=== PATIENT | male | born 1995 | race Caucasian/White ===

== ENCOUNTER 2018-07-09 11:25 | Day surgery (SDC) | payer OTHER ==
[~2018-07-09 11:25] MED LIST: DEXAMETHASONE SOD PHOSPHATE 10 MG/ML 1 ML VIAL IV ONE; LACTATED RINGERS 1,000 ML IV SCH; LIDOCAINE 1% 20 ML VIAL (10MG/ML) FOR IV START INTRADERMA PRN; MIDAZOLAM 2 MG/2 ML VIAL IV PRN; ceFAZolin IN SWFI 2 GM/20 ML SYRINGE IVP ONE; fentaNYL (PF) 50 MCG/ML 2 ML AMP IV PRN
[2018-07-09 12:02] VITALS: BMI 36.4
[2018-07-09 12:04] VITALS: RESP 16
[2018-07-09] MEDS ORDERED: FAMOTIDINE 20 MG/2 ML VIAL IVP ONE (14:05)
[2018-07-09] MEDS ORDERED: HYDROmorphone (PF) 1 MG/ML ONE (14:12)
[2018-07-09] MEDS ORDERED: SUCCINYLCHOLINE CHLORIDE 100 MG/5 ML SYR IV ONE (14:12)
[2018-07-09] MEDS ORDERED: PROPOFOL 10 MG/ML 20 ML VIAL IV ONE (14:12)
[2018-07-09] MEDS ORDERED: fentaNYL (PF) 50 MCG/ML 2 ML AMP ONE (14:12)
[2018-07-09] MEDS ORDERED: LIDOCAINE 1% INJ 10MG/ML (20 ML MDV) ONE (14:12)
[2018-07-09] MEDS ORDERED: MIDAZOLAM 2 MG/2 ML VIAL ONE (14:12)
[2018-07-09] MEDS ORDERED: LIDOCAINE 1%-EPI 1:100,000 20 ML VIAL SQ ONE (14:14)
[2018-07-09] MEDS ORDERED: LACTATED RINGERS 1,000 ML IV ONE (15:20)
[2018-07-09] MEDS ORDERED: ONDANSETRON 4 MG/2 ML VIAL IVP ONE (16:35)
[2018-07-09 16:53] VITALS: TEMP 97.3
--- NOTE | 2018-07-09 17:38 | P.OP ---
Date of Procedure: 07/09/18 Preoperative Diagnosis: Displaced, intra-articular right fifth metacarpal base fracture Postoperative Diagnosis: Displaced, intra-articular right fifth metacarpal base fracture Procedure(s) Performed: Open reduction and internal fixation of displaced, intra-articular right fifth metacarpal base fracture Implants: Three 0.054 K-wires Anesthesia: BRANDI, local Surgeon: Kervin Hughes Estimated Blood Loss (ml): 5 Condition: stable Disposition: PACU Indications for Procedure: The patient is a 23 year-old male who sustained an injury to right hand, resulting in a displaced, intra-articular fracture of his right fifth metacarpal base. Treatment options were discussed in the office. Due to the intra- articular nature of the fracture with step-off and subluxation of the CMC joint, surgical treatment was recommended. Risks and benefits were discussed in the office and reviewed in preop. Questions were invited and answered. The patient expressed understanding and wished to proceed with surgery. Consents forms were signed. The operative site was confirmed and marked. Description of Procedure: The patient was positioned supine with the operative limb on an arm board. All bony prominences were well padded. Anesthesia was administered uneventfully. Prophylactic IV antibiotics were administered. Using aseptic technique, an ulnar nerve block was administered with 10cc of lidocaine with epinephrine. A tourniquet was placed on the operative arm which was then prepped and draped in standard, sterile fashion. A timeout was performed which confirmed the patient, the operative side, the site and the procedure to be performed. All team mem bers expressed agreement. Intraoperative fluoroscopy was used to evaluate the fracture. The radial aspect of the fifth metacarpal base was impacted with widening of the fracture site at the articular surface. The ulnar aspect of the metacarpal base was subluxed ulnarly on the hamate. Combination of axial traction and manual reduction was used to realign the fracture. This was confirmed on imaging. A 0.054 K wire was selected and introduced percutaneously into the ulnar fracture fragment to be used as a joystick. Manual attempts to improve the articular incongruity were unsuccessful and the decision was made to open reduce the fracture. The K wire was removed. The limb was exsanguinated with an Esmarch and the tourniquet was inflated. A small longitudinal incision was made over the CMC joint between the fourth and fifth metacarpal bases. Blunt spreading dissection proceeded down to the joint capsule. A small capsulotomy was made to allow insertion of a pointed reduction clamp. A separate mini-open incision was made ulnarly over the fifth metacarpal base. Subcutaneous tissues were spread down to the bone, taking care to protect adjacent tendinous and neurovascular structures. The pointed reduction clamp was inserted through both small incisions and used to reduce the fracture. Alignment was confirmed on imaging. The 0.054 K wire was inserted and driven transversely across the fifth metacarpal base and into the far side of the fourth metacarpal base. A second K wire was inserted just distal to this in the same orientation. A third K wire was introduced percutaneously and advanced into the distal portion of the metaphysis and driven retrograde across the CMC joint and into the hamate. Final x-rays were obtained. Good reduction of the fracture was achieved with a small residual intra-articular step-off. The fifth metacarpal base showed no subluxation on orthogonal images. The fracture was then stressed under live fluoroscopy: There was no visible motion at the fracture site or of the fixation construct. No motion or subluxation was seen at the CMC joints. The tourniquet was released and good hemostasis was obtained with pressure. The wounds were thoroughly irrigated with normal saline. The K wires were cut short and covered with Jurgan balls. The incisions were closed with interrupted 4-0 nylon sutures. Sterile dressings were applied followed by a short plaster ulnar gutter splint with the MCP joints free. All sponge, needle and instrument counts were correct at the end of the case. The patient tolerated the procedure well and was taken to recovery in stable condition.
[2018-07-09 18:43] VITALS: BP 130/87; PULSE 56
--- NOTE | 2018-07-10 16:30 | FL ---
Fluoroscopy INDICATION: Pain FINDINGS: Fluoroscopy time: 4 minutes 16 seconds. Images obtained: 3. IMPRESSIONS: 1. Documentation of fluoroscopy.
== END 2018-07-09 18:55 | disposition home or self-care (01) ==
LOC: OR 11:25
PROVIDERS: ATTEND Orthopaedic Surgery
DX: S62.396A Other fracture of fifth metacarpal bone, right hand, initial encounter for closed fracture (principal); X58.XXXA Exposure to other specified factors, initial encounter; J45.909 Unspecified asthma, uncomplicated; K21.9 Gastro-esophageal reflux disease without esophagitis; Z87.891 Personal history of nicotine dependence; Z79.1 Long term (current) use of non-steroidal anti-inflammatories (NSAID)
CPT/HCPCS: 73120; 26615; C1713; J2250; J1100; J2405; J2001; J3010; J1170; J0330; J2704; J0690

== ENCOUNTER 2022-01-17 03:53 | Emergency (ER) | payer OTHER ==
[2022-01-17] MEDS ORDERED: AMPICILLIN-SULBACTAM 3 GM VIAL ONE (05:00)
[2022-01-17] MEDS ORDERED: methylPREDNISolone SOD SUCCI 125 MG/2 ML VIAL ONE (05:00)
[2022-01-17] MEDS ORDERED: SODIUM CHLORIDE 0.9% 100 ML BAG ONE (05:00)
[2022-01-17] MEDS ORDERED: diphenhydrAMINE 50 MG/ML 1 ML VIAL ONE (05:00)
[2022-01-17] MEDS ORDERED: ONDANSETRON 4 MG/2 ML VIAL ONE (05:00)
[2022-01-17] MEDS ORDERED: FAMOTIDINE 20 MG/2 ML VIAL ONE (05:00)
[2022-01-17] MEDS ORDERED: KETOROLAC 15 MG/ML 1 ML VIAL ONE (05:00)
[2022-01-17 06:46] LABS: ALT 59 U/L (4-49); AST 53 U/L (17-59); African American GFR (CKD) >90 (>60 ml/min/1.73 sqM); Albumin 4.3 g/dL (3.5-5.0); Alkaline Phosphatase 48 U/L (38-126); Anion Gap 10 mmol/L; Blood Urea Nitrogen 16 mg/dL (9-20); Calcium 9.1 mg/dL (8.4-10.2); Carbon Dioxide 21 mmol/L (22-30); Chloride 106 mmol/L (98-107); Glucose 109 mg/dL (74-99); Non-African American GFR(CKD) >90 (>60 ml/min/1.73 sqM); Sodium 137 mmol/L (137-145); Total Bilirubin 0.8 mg/dL (0.2-1.3)
[2022-01-17 06:47] LABS: Potassium 4.2 mmol/L (3.5-5.1)
[2022-01-17 06:59] LABS: Basophils # (A) 0.1 k/uL (0-0.2); Basophils % (A) 1 %; Eosinophils # (A) 0.1 k/uL (0-0.7); Eosinophils % (A) 1 %; HCT 43.2 % (39.0-53.0); HGB 14.6 gm/dL (13.0-17.5); Lymphocytes % (A) 8 %; MCH 30.6 pg (25.0-35.0); MCHC 33.9 g/dL (31.0-37.0); MCV 90.5 fL (80.0-100.0); Monocytes # (A) 0.5 k/uL (0-1.0); Monocytes % (A) 5 %; Neutrophils # (A) 10.3 k/uL (1.3-7.7); Neutrophils % (A) 85 %; Platelet Count 212 k/uL (150-450); RBC 4.77 m/uL (4.30-5.90); RDW 12.6 % (11.5-15.5); WBC 12.1 k/uL (3.8-10.6)
--- NOTE | 2022-01-17 09:48 | CT ---
EXAMINATION TYPE: CT soft tissue neck w con DATE OF EXAM: 01/17/2022 COMPARISON: None HISTORY: 26-year-old male complaining of tongue and right neck swelling and pain extending into the l eft neck. Dental abscess. TECHNIQUE: Contiguous axial scanning of the soft tissues of the neck performed with IV Contrast, joaquin ent injected with 100 mL of Isovue 300. Coronal/sagittal reconstructions performed. CT DLP: 404.1 mGycm Automated exposure control for dose reduction was used. FINDINGS: The bilateral parotid, submandibular, and thyroid glands appear satisfactory. Visualized upper chest shows clear lungs. Some residual thymus is noted in the anterior mediastinum. Conventional arch vessel branching anatomy. Some prominent lymph nodes are present on both sides of the upper neck, slightly larger on the left m easuring up to 1.4 cm. These appear to be station 2B lymph nodes. Nasopharynx is clear. Mild bilateral palatine and lingual tonsillar hypertrophy. Epiglottis and prevertebral soft tissues are satisfactory. Gliotic and subglottic structures as well as the tracheal column are clear. Asymmetrically larger right submandibular space lymph node measuring 1 cm. This is mildly enlarged fo r this level. Mucous retention cysts along the floors of the maxillary sinuses measuring up to 2.0 cm on the right. Rightward nasal septal deviation. Dental caries noted involving the right mandibular first molar, coronal image 17 and axial image 62. Bones: Reversal of the normal cervical lordosis. IMPRESSION: 1. MILDLY ENLARGED 1 CM RIGHT SUBMANDIBULAR SPACE LYMPH NODE LIKELY REACTIVE. THIS CAN BE FOLLOWED CL INICALLY. 2. A LARGE DENTAL CARIES INVOLVING THE RIGHT MANDIBULAR FIRST MOLAR. 3. NO DISCRETE ODONTOGENIC ABSCESS IS IDENTIFIED. 4. MILD BILATERAL LINGUAL AND PALATINE TONSILLAR HYPERTROPHY. PRELIMINARY AFTER HOURS READING PROVIDED BY STAT [employer].
== END 2022-01-17 09:51 | disposition home or self-care (01) ==
LOC: EC 03:53
DX: K02.9 Dental caries, unspecified (principal); J45.909 Unspecified asthma, uncomplicated
CPT/HCPCS: 36415; 80053; 83605; 85025; 70491; 99283; J1200; J2930; J2405; J0295; J1885; Q9967

== ENCOUNTER 2022-09-06 08:09 | Emergency (ER) | payer OTHER ==
[2022-09-06] MEDS ORDERED: MORPHINE SULFATE 2 MG/ML SYRINGE IM STA (08:37)
[2022-09-06] MEDS ORDERED: KETOROLAC 15 MG/ML 1 ML VIAL IM STA (08:37)
[2022-09-06] MEDS ORDERED: BENZOCAINE SPRAY 1 CAN MUCOUS MEM ONE (08:37)
[2022-09-06] MEDS ORDERED: AMOXIC-POT CLAV 875-125MG 1 EACH TAB PO STA (08:38)
--- NOTE | 2022-09-06 08:54 | ED ---
ENT HPI - General Chief complaint: Dental/Oral Stated complaint: facial swelling Time Seen by Provider: 09/06/22 08:14 Source: patient, RN notes reviewed Mode of arrival: ambulatory Limitations: no limitations - History of Present Illness Initial comments: This is a 27-year-old male who presents to the emergency department for right- sided dental pain. Believes that he is developing an abscess. States that he has started to notice right-sided dental pain and swelling over the last 2 days. He called his dentist, who was unable to get him in and subsequently instructed him to go to the emergency department. States that last night he felt like the area started to drain purulent material. He has not had any fevers, but states that he has been unable to sleep due to the pain. He did have a dental abscess a couple of years ago and states that this feels the same. He had it drained at that time, which he states was very helpful. Denies any fevers, chills, sore throat, cough, dyspnea, chest pain, palpitations, abdominal pain, nausea, vomiting, diarrhea, back pain, or headaches. MD complaint: tooth pain Onset/Timin -: days(s) - Related Data Home Medications Medication Instructions Recorded Confirmed Ibuprofen [Motrin] 600 mg PO Q6HR PRN 12/11/15 07/09/18 Naproxen Sodium [Aleve] 220 mg PO DAILY PRN 12/11/15 07/09/18 Previous Rx's Medication Instructions Recorded HYDROcodone/APAP 5-325MG [Elizabeth 1 tab PO Q6HR PRN #20 tab 07/09/18 5-325] Amoxic-Pot Clav 875-125Mg 1 tab PO Q12HR 10 Days #20 tab 09/06/22 [Augmentin 875-125] Ketorolac [Toradol] 10 mg PO Q6HR PRN #12 tab 09/06/22 Allergies Allergy/AdvReac Type Severity Reaction Status Date / Time No Known Allergies Allergy Verified 09/06/22 08:12 Review of Systems ROS Statement: Those systems with pertinent positive or pertinent negative responses have been documented in the HPI. ROS Other: All systems not noted in ROS Statement are negative. Past Medical History Past Medical History: Asthma Additional Past Medical History / Comment(s): torn trachea History of Any Multi-Drug Resistant Organisms: None Reported Additional Past Surgical History / Comment(s): foot surgery Past Psychological History: No Psychological Hx Reported Smoking Status: Current every day smoker Past Alcohol Use History: None Reported Past Drug Use History: Marijuana General Exam Limitations: no limitations General appearance: alert, in no apparent distress Head exam: Present: atraumatic, normocephalic, normal inspection Eye exam: Present: other (Palpable dental abscess superior to the canines on the right upper jaw. Multiple dental carries. ) Respiratory exam: Present: normal lung sounds bilaterally. Absent: respiratory distress, wheezes, rales, rhonchi, stridor Cardiovascular Exam: Present: regular rate, normal rhythm, normal heart sounds. Absent: systolic murmur, diastolic murmur, rubs, gallop, clicks Neurological exam: Present: alert, oriented X3, CN II-XII intact Psychiatric exam: Present: normal affect, normal mood Skin exam: Present: warm, dry, intact, normal color. Absent: rash Course Vital Signs 09/06/22 09/06/22 08:09 09:24 Temperature 97.6 F 97.7 F Pulse Rate 70 72 Respiratory 20 16 Rate Blood Pressure 138/85 134/81 O2 Sat by Pulse 99 99 Oximetry Procedures - Incision & Drainage Consent Obtained: verbal consent Indication: Abscess Site: oral Size (cm): 3 Sterile Field Used?: Yes Scalpel Used: #11 I&D Drainage Obtained: Pus, Blood Medical Decision Making - Medical Decision Making This is a 27-year-old male who presents to the emergency department for dental pain. Was pt. sent in by a medical professional or institution? @ -No Did you speak to anyone other than the patient for history? @ -No Did you review nursing and triage notes? @ -Yes, and I agree, it is accurate with regards to the patient's symptoms. Were old charts reviewed? @ -No Differential Diagnosis? @ -Differential Dental Pain: Dental abscess, chipped tooth, dental carries, everett's angina, trigeminal neuralgia, this is not meant to be an all-inclusive list. EKG interpreted by me (3pts min.)? @ -Not obtained X-rays interpreted by me (1pt min.)? @ -Not obtained CT interpreted by me (1pt min.)? @ -Not obtained U/S interpreted by me (1pt. min.)? @ -Not obtained What testing was considered but not performed? (CT, X-rays, U/S, labs)? Why? @ -None What meds were considered but not given? Why? @ -None Did you discuss the management of the patient with other professionals? @ -No Did you reconcile home meds? @ -No Was smoking cessation discussed for >3mins.? @ -No Was critical care preformed (if so, how long)? @ -No Were there social determinants of health that impacted care today? How? (Homelessness, low income, unemployed, alcoholism, drug addiction, transportation, low edu. Level, literacy, decrease access to med. care, fci, rehab)? @ -No Was there de-escalation of care discussed even if they declined? (Discuss DNR or withdrawal of care, Hospice)? @ -No What co-morbidities impacted this encounter? (DM, HTN, Smoking, COPD, CAD, Can cer, CVA, Hep., AIDS, mental health diagnosis, sleep apnea, morbid obesity)? @ -None Was patient admitted / discharged? @ -Discharged. There was a palpable abscess on physical examination. Hurricane spray was used to numb the area and an 11 blade scalpel was used to lightly poke the affected area. Purulent drainage was expressed. Patient did feel notable improvement in the swelling afterwards. Prescription for Augmentin and Toradol provided with dosing instructions reviewed.Patient is instructed to take the Toradol with Tylenol if needed and avoid any other [id number] anti-inflammatories such as ibuprofen with the Toradol. He is otherwise advised to follow-up with his dentist for reevaluation. Undiagnosed new problem with uncertain prognosis? @ -None Drug Therapy requiring intensive monitoring for toxicity (Heparin, Nitro, Insulin, Cardizem)? @ -None Were any procedures done? @ -Yes, I&D of dental abscess. #11 blade scalpel was used to lightly poke the affected area, with drainage of purulent material from the abscess. Diagnosis/symptom? @ -Dental abscess Acute, or Chronic, or Acute on Chronic? @ -Acute Uncomplicated (without systemic symptoms) or Complicated (systemic symptoms)? @ -Uncomplicated Side effects of treatment? @ -None Exacerbation, Progression, or Severe Exacerbation] @ -Not applicable Poses a threat to life or bodily function? @ -No Return precautions reviewed in depth, the patient is instructed to return to the emergency department with any new, worsening, or concerning symptoms. Patient verbalized understanding. This case was discussed in detail with the attending ED physician, Dr. Leblanc. Presentation, findings, and treatment plan discussed in detail as well. Disposition Clinical Impression: Dental abscess Disposition: HOME SELF-CARE Instructions (If sedation given, give patient instructions): Dental Abscess (ED) Additional Instructions: Return to the emergency department with any new, worsening, or concerning symptoms. Take the antibiotic as prescribed for 10 days. Take either the Toradol or ibuprofen for pain relief. Do not take them together, however you may take either of these with Tylenol. Follow-up with your dentist for reevaluation. Prescriptions: Amoxic-Pot Clav 875-125Mg [Augmentin 875-125] 1 tab PO Q12HR 10 Days #20 tab Ketorolac [Toradol] 10 mg PO Q6HR PRN #12 tab PRN Reason: Pain Is patient prescribed a controlled substance at d/c from ED?: No Referrals: None,Stated [Primary Care Provider] - 1-2 days
[2022-09-06] MEDS ORDERED: IBUPROFEN 600 MG STARTER PACK 4 TAB BTL PO STA (09:13)
[2022-09-06] MEDS ORDERED: ACET/COD 300 MG/30 MG STARTER PACK 6 TAB BTL PO STA (09:13)
[2022-09-06 09:25] VITALS: BP 134/81; PULSE 72; RESP 16; TEMP 97.7
== END 2022-09-06 09:25 | disposition home or self-care (01) ==
LOC: EC 08:09
DX: K04.7 Periapical abscess without sinus (principal); J45.909 Unspecified asthma, uncomplicated; F17.200 Nicotine dependence, unspecified, uncomplicated; F12.90 Cannabis use, unspecified, uncomplicated
CPT/HCPCS: 99283; 96372 ×2; 41800; J2270; J1885

== ENCOUNTER 2022-09-25 00:30 | Emergency (ER) | payer OTHER ==
[2022-09-25 00:41] VITALS: BP 147/85; PULSE 67; RESP 18
[2022-09-25] MEDS ORDERED: KETOROLAC 15 MG/ML 1 ML VIAL IM STA (00:51)
--- NOTE | 2022-09-25 00:59 | ED ---
ENT HPI - General Chief complaint: Dental/Oral Stated complaint: Dental Pain Time Seen by Provider: 09/25/22 00:42 Source: patient, RN notes reviewed, old records reviewed Mode of arrival: ambulatory Limitations: no limitations - History of Present Illness Initial comments: Well-appearing 27-year-old male presents to the emergency room with complaints o f right upper dental pain for 2 weeks. Patient states was seen in the emergency room couple weeks ago and had an abscess drained and prescribed antibiotics which he finished. States that he is able to express purulent drainage from the site everyday. Denies any fevers. No nausea or vomiting or diarrhea. He is unable to get into a dentist and has been calling every day. Patient is a daily smoker with a history of asthma. MD complaint: tooth pain -: week(s) Location: tooth # (4) Severity scale (1-10): 9 Quality: constant Consistency: constant Improves with: none - Related Data Home Medications Medication Instructions Recorded Confirmed Ibuprofen [Motrin] 600 mg PO Q6HR PRN 12/11/15 07/09/18 Naproxen Sodium [Aleve] 220 mg PO DAILY PRN 12/11/15 07/09/18 Previous Rx's Medication Instructions Recorded HYDROcodone/APAP 5-325MG [Manquin 1 tab PO Q6HR PRN #20 tab 07/09/18 5-325] Amoxic-Pot Clav 875-125Mg 1 tab PO Q12HR 10 Days #20 tab 09/06/22 [Augmentin 875-125] Ketorolac [Toradol] 10 mg PO Q6HR PRN #12 tab 09/06/22 Allergies Allergy/AdvReac Type Severity Reaction Status Date / Time No Known Allergies Allergy Verified 09/25/22 00:39 Review of Systems ROS Statement: Those systems with pertinent positive or pertinent negative responses have been documented in the HPI. ROS Other: All systems not noted in ROS Statement are negative. Past Medical History Past Medical History: Asthma Additional Past Medical History / Comment(s): torn trachea History of Any Multi-Drug Resistant Organisms: None Reported Additional Past Surgical History / Comment(s): foot surgery Past Psychological History: No Psychological Hx Reported Smoking Status: Current every day smoker Past Alcohol Use History: None Reported Past Drug Use History: Marijuana General Exam Limitations: no limitations General appearance: alert, in no apparent distress Head exam: Present: atraumatic, normocephalic Eye exam: Present: normal appearance. Absent: scleral icterus, conjunctival injection, periorbital swelling ENT exam: Present: mucous membranes moist, other (mutlipe dental caries and missing teeth, evidence of previous i&d no evidence of abscess) Neck exam: Present: full ROM. Absent: tenderness, meningismus, lymphadenopathy Respiratory exam: Absent: respiratory distress, accessory muscle use Cardiovascular Exam: Present: regular rate GI/Abdominal exam: Present: soft. Absent: distended Neurological exam: Present: alert, oriented X3 Psychiatric exam: Present: normal affect, normal mood Skin exam: Present: warm, dry, normal color. Absent: cyanosis, diaphoretic, petechiae, pallor Course Vital Signs 09/25/22 09/25/22 00:39 01:30 Temperature 98.0 F Pulse Rate 67 Respiratory 18 Rate Blood Pressure 147/85 O2 Sat by Pulse 98 Oximetry Medical Decision Making - Medical Decision Making Was pt. sent in by a medical professional or institution (, PA, ANIMAL HEALTH TECHNICIAN, urgent care, hospital, or long term...) When possible be specific @ -No Did you speak to anyone other than the patient for history (EMS, parent, family, police, friend...)? What history was obtained from this source @ -No Did you review nursing and triage notes (agree or disagree)? Why? @ -I reviewed and agree with nursing and triage notes Were old charts reviewed (outside hosp., previous admission, EMS record, old EKG, old radiological studies, urgent care reports/EKG's, long term records)? Report findings @ -Previous ER records September 06, CT neck January 17 Differential Diagnosis (chest pain, altered mental status, abdominal pain women, abdominal pain men, vaginal bleeding, weakness, fever, dyspnea, syncope, headache, dizziness, GI bleed, back pain, seizure, CVA, palpatations, mental health, musculoskeletal)? @ -Dental abscess, dental fracture, gingivitis EKG interpreted by me (3pts min.). @ -n/a X-rays interpreted by me (1pt min.). @ -None done CT interpreted by me (1pt min.). @ -None done U/S interpreted by me (1pt. min.). @ -None done What testing was considered but not performed or refused? (CT, X-rays, U/S, labs)? Why? @ -None What meds were considered but not given or refused? Why? @ -Antibiotics were considered however there is no evidence of a dental abscess. Patient just finished antibiotics last week. No fevers. Did you discuss the management of the patient with other professionals (professionals i.e. , LAVON, ANIMAL HEALTH TECHNICIAN, lab, RT, psych nurse, social service manager, lens cleaner, teacher, protective officer, case repairer)? Give summary @ -No Was smoking cessation discussed for >3mins.? @ -Yes Was critical care preformed (if so, how long)? @ -No Were there social determinants of health that impacted care today? How? (Homelessness, low income, unemployed, alcoholism, drug addiction, transportation, low edu. Level, literacy, decrease access to med. care, halfway, rehab)? @ -No Was there de-escalation of care discussed even if they declined (Discuss DNR or withdrawal of care, Hospice)? DNR status @ -No What co-morbidities impacted this encounter? (DM, HTN, Smoking, COPD, CAD, Cancer, CVA, ARF, Chemo, Hep., AIDS, mental health diagnosis, sleep apnea, morbid obesity)? @ -Asthma Was patient admitted / discharged? Hospital course, mention meds given and route, prescriptions, significant lab abnormalities, going to OR and other pertinent info. @ -Discharged Well-appearing 27-year-old male presents to the emergency room with complaints of right upper dental pain for 2 weeks. Patient states was seen in the emergency room couple weeks ago and had an abscess drained and prescribed antibiotics which he finished. States that he is able to express purulent drainage from the site everyday. Denies any fevers. No nausea or vomiting or diarrhea. He is unable to get into a dentist and has been calling every day. Lavon tapia is a daily smoker with a history of asthma. Patient was given a shot of Toradol. I explained that without seeing a dentist, his dental pain may not improve. Encouraged to continue Tylenol and Motrin alternating. He was given information for the [employer] [facility] [employer]. Starter pack for Tylenol 3 provided. Case discussed with Dr. Blair Undiagnosed new problem with uncertain prognosis? @ -No Drug Therapy requiring intensive monitoring for toxicity (Heparin, Nitro, Insulin, Cardizem)? @ -No Were any procedures done? @ -No Diagnosis/symptom? @ -Dental pain Acute, or Chronic, or Acute on Chronic? @ -Acute on chronic Uncomplicated (without systemic symptoms) or Complicated (systemic symptoms)? @ -Uncomplicated Side effects of treatment? @ -No Exacerbation, Progression, or Severe Exacerbation? @ -No Poses a threat to life or bodily function? How? (Chest pain, [place], [place], pneumonia, PE, COPD, DKA, ARF, appy, cholecystitis, CVA, Diverticulitis, Homicidal, Suicidal, threat to staff... and all critical care pts) @ -No Disposition Clinical Impression: Toothache Disposition: HOME SELF-CARE Condition: Good Instructions (If sedation given, give patient instructions): Toothache (ED) Additional Instructions: Take Tylenol 650 mg every 4-6 hours in addition to Motrin 70 mg every 6-8 hours. Rinse with the warm salty water three times a day. [employer] [facility] [employer] [phone]. May have to pay $50 for x-rays and the rest may be covered. Is patient prescribed a controlled substance at d/c from ED?: No Referrals: None,Stated [Primary Care Provider] - 1-2 days Time of Disposition: 00:59
[2022-09-25] MEDS ORDERED: ACET/COD 300 MG/30 MG STARTER PACK 6 TAB BTL PO STA (01:03)
[2022-09-25 01:50] VITALS: TEMP 98
== END 2022-09-25 01:53 | disposition home or self-care (01) ==
LOC: EC 00:30
DX: K02.9 Dental caries, unspecified (principal); J45.909 Unspecified asthma, uncomplicated; F17.200 Nicotine dependence, unspecified, uncomplicated; F12.90 Cannabis use, unspecified, uncomplicated
CPT/HCPCS: 99283; 96372; J1885

== ENCOUNTER 2023-10-24 11:17 | Emergency (ER) | payer BC, OTHER ==
[2023-10-24 11:23] VITALS: RESP 18
--- NOTE | 2023-10-24 11:29 | ED ---
Skin/Abscess/FB HPI - General Chief complaint: Skin/Abscess/Foreign Body Stated complaint: Blister on back, weakness, headache Time Seen by Provider: 10/24/23 11:29 Source: patient, RN notes reviewed Mode of arrival: ambulatory Limitations: no limitations - History of Present Illness Initial comments: This is a 28-year-old male with no significant past medical history who presents to the emergency department chief complaint of a rash to his left upper back. States that he is also been experiencing headaches, fatigue, and chills since the rash appeared approximately 2 days ago. He states that the pain radiates in his back. Patient does have a history of chickenpox as a child. Denies fevers, nausea, vomiting, abdominal pain, shortness of breath, productive cough. No other acute complaints at this time. - Related Data Home Medications Medication Instructions Recorded Confirmed Ibuprofen [Motrin] 600 mg PO Q6HR PRN 12/11/15 07/09/18 Naproxen Sodium [Aleve] 220 mg PO DAILY PRN 12/11/15 07/09/18 Previous Rx's Medication Instructions Recorded HYDROcodone/APAP 5-325MG [[place] 1 tab PO Q6HR PRN #20 tab 07/09/18 5-325] Amoxic-Pot Clav 875-125Mg 1 tab PO Q12HR 10 Days #20 tab 09/06/22 [Augmentin 875-125] Ketorolac [Toradol] 10 mg PO Q6HR PRN #12 tab 09/06/22 Acyclovir [Zovirax] 800 mg PO QID 7 Days #28 tab 10/24/23 Ketorolac [Toradol] 10 mg PO Q8HR PRN #15 tab 10/24/23 Allergies Allergy/AdvReac Type Severity Reaction Status Date / Time No Known Allergies Allergy Verified 10/24/23 11:23 Review of Systems ROS Statement: Those systems with pertinent positive or pertinent negative responses have been documented in the HPI. ROS Other: All systems not noted in ROS Statement are negative. Past Medical History Past Medical History: Asthma Additional Past Medical History / Comment(s): torn trachea History of Any Multi-Drug Resistant Organisms: None Reported Additional Past Surgical History / Comment(s): foot surgery Past Psychological History: No Psychological Hx Reported Smoking Status: Former smoker Past Alcohol Use History: None Reported Past Drug Use History: Marijuana General Exam Limitations: no limitations General appearance: alert, in no apparent distress Head exam: Present: atraumatic, normocephalic, normal inspection Eye exam: Present: normal appearance, PERRL, EOMI. Absent: scleral icterus, conjunctival injection, periorbital swelling ENT exam: Present: normal exam, mucous membranes moist Neck exam: Present: normal inspection. Absent: tenderness, meningismus, lymphadenopathy Respiratory exam: Present: normal lung sounds bilaterally. Absent: respiratory distress, wheezes, rales, rhonchi, stridor Cardiovascular Exam: Present: regular rate, normal rhythm, normal heart sounds. Absent: systolic murmur, diastolic murmur, rubs, gallop, clicks GI/Abdominal exam: Present: soft, normal bowel sounds. Absent: distended, tenderness, guarding, rebound, rigid Extremities exam: Present: normal inspection, full ROM, normal capillary refill. Absent: tenderness, pedal edema, joint swelling, calf tenderness Back exam: Present: rash noted (left scapular vesciluar erythematous rash measuring aprox. 2 cm by 3 cm, does not cross midline) Neurological exam: Present: alert, oriented X3, CN II-XII intact Psychiatric exam: Present: normal affect, normal mood Skin exam: Present: rash (see above description) Course Vital Signs 10/24/23 11:19 Temperature 98 F Pulse Rate 80 Respiratory 18 Rate Blood Pressure 128/81 O2 Sat by Pulse 98 Oximetry Medical Decision Making - Medical Decision Making Was pt. sent in by a medical professional or institution (, PA, [employer], urgent care, hospital, or senior care...) When possible be specific @ -No Did you speak to anyone other than the patient for history (EMS, parent, family, police, friend...)? What history was obtained from this source @ -No Did you review nursing and triage notes (agree or disagree)? Why? @ -I reviewed and agree with nursing and triage notes Were old charts reviewed (outside hosp., previous admission, EMS record, old EKG, old radiological studies, urgent care reports/EKG's, senior care records)? Report findings @ -No old charts were reviewed Differential Diagnosis (chest pain, altered mental status, abdominal pain women, abdominal pain men, vaginal bleeding, weakness, fever, dyspnea, syncope, headache, dizziness, GI bleed, back pain, seizure, CVA, palpatations, mental health, musculoskeletal)? @ -shingles, dermatitis, cellulitis, contact dermatitis, list is not all inclusive. EKG interpreted by me (3pts min.). @ -None X-rays interpreted by me (1pt min.). @ -None done CT interpreted by me (1pt min.). @ -None done U/S interpreted by me (1pt. min.). @ -None done What testing was considered but not performed or refused? (CT, X-rays, U/S, labs)? Why? @ -None What meds were considered but not given or refused? Why? @ -None Did you discuss the management of the patient with other professionals (professionals i.e. , PA, [employer], lab, RT, psych nurse, social worker palliative care, maintenance millwright, teacher, aerospace engineer officer armament, egg caser)? Give summary @ -No Was smoking cessation discussed for >3mins.? @ -No Was critical care preformed (if so, how long)? @ -No Were there social determinants of health that impacted care today? How? (Homelessness, low income, unemployed, alcoholism, drug addiction, transportation, low edu. Level, literacy, decrease access to med. care, snf, rehab)? @ -No Was there de-escalation of care discussed even if they declined (Discuss DNR or withdrawal of care, Hospice)? DNR status @ -No What co-morbidities impacted this encounter? (DM, HTN, Smoking, COPD, CAD, Cancer, CVA, ARF, Chemo, Hep., AIDS, mental health diagnosis, sleep apnea, mo rbid obesity)? @ -None Was patient admitted / discharged? Hospital course, mention meds given and route, prescriptions, significant lab abnormalities, going to OR and other pertinent info. @ -Discharged. 28-year-old male with a rash. On examination patient is noted to have a roughly 3 cm x 4 cm rash to the left scapular region that is erythematous and vesicular. This rash does not cross midline. Rashes consistent with shingles outbreak. Patient does have a history of chickenpox which aids in diagnosis. Patient will be sent a prescription for acyclovir and Toradol as needed for pain relief. Instruct patient to complete full course of antivirals as prescribed recommend that he follow-up with his primary care provider next week for further evaluation. All questions answered at bedside and strict return parameters discussed with the patient he is verbalized understanding. Case discussed with Dr. Leblanc. Undiagnosed new problem with uncertain prognosis? @ -No Drug Therapy requiring intensive monitoring for toxicity (Heparin, Nitro, Insulin, Cardizem)? @ -No Were any procedures done? @ -No Diagnosis/symptom? @ -shingles Acute, or Chronic, or Acute on Chronic? @ -acute Uncomplicated (without systemic symptoms) or Complicated (systemic symptoms)? @ -uncomplicated Side effects of treatment? @ -No Exacerbation, Progression, or Severe Exacerbation? @ -No Poses a threat to life or bodily function? How? (Chest pain, [place], [place], pneumonia, PE, COPD, DKA, ARF, appy, cholecystitis, CVA, Diverticulitis, Homicidal, Suicidal, threat to staff... and all critical care pts) @ -No Disposition Clinical Impression: Shingles rash Disposition: HOME SELF-CARE Condition: Good Instructions (If sedation given, give patient instructions): Shingles (ED) Additional Instructions: Complete full course of antibiotics as prescribed. Take Toradol as needed for pain relief. Return to the emergency department if your symptoms worsen or do not improve. Recommend follow-up with your primary care provider next week for further evaluation. Prescriptions: Ketorolac [Toradol] 10 mg PO Q8HR PRN #15 tab PRN Reason: pain Acyclovir [Zovirax] 800 mg PO QID 7 Days #28 tab Is patient prescribed a controlled substance at d/c from ED?: No Referrals: None,Stated [Primary Care Provider] - 1-2 days Time of Disposition: 11:53
[2023-10-24 12:37] VITALS: BP 126/78; PULSE 76; TEMP 98.6
== END 2023-10-24 12:37 | disposition home or self-care (01) ==
LOC: EC 11:17
DX: B02.9 Zoster without complications (principal); Z87.891 Personal history of nicotine dependence
CPT/HCPCS: 99283

== ENCOUNTER 2023-10-29 20:23 | Emergency (ER) | payer BC ==
[2023-10-29 20:37] VITALS: RESP 18
--- NOTE | 2023-10-29 21:05 | ED ---
ENT HPI - General Chief complaint: Dental/Oral Stated complaint: dental, abcess Time Seen by Provider: 10/29/23 20:25 Source: patient, RN notes reviewed Mode of arrival: ambulatory Limitations: no limitations - History of Present Illness Initial comments: 28-year-old male presents emergency department treatment of dental pain. Patient states that this started today in the left upper area he states he has poor dentition. Has had abscesses in the past. States pain has not been controlled by ibuprofen. Denies any fevers or chills denies any difficulty swallowing no other associated symptoms. - Related Data Home Medications Medication Instructions Recorded Confirmed Ibuprofen [Motrin] 600 mg PO Q6HR PRN 12/11/15 07/09/18 Naproxen Sodium [Aleve] 220 mg PO DAILY PRN 12/11/15 07/09/18 Previous Rx's Medication Instructions Recorded HYDROcodone/APAP 5-325MG [[place] 1 tab PO Q6HR PRN #20 tab 07/09/18 5-325] Amoxic-Pot Clav 875-125Mg 1 tab PO Q12HR 10 Days #20 tab 09/06/22 [Augmentin 875-125] Ketorolac [Toradol] 10 mg PO Q6HR PRN #12 tab 09/06/22 Acyclovir [Zovirax] 800 mg PO QID 7 Days #28 tab 10/24/23 Ketorolac [Toradol] 10 mg PO Q8HR PRN #15 tab 10/24/23 Amoxic-Pot Clav 875-125Mg 1 tab PO Q12HR #20 tab 10/29/23 [Augmentin 875-125] Ketorolac [Toradol] 10 mg PO Q8HR #15 tab 10/29/23 Allergies Allergy/AdvReac Type Severity Reaction Status Date / Time No Known Allergies Allergy Verified 10/29/23 20:37 Review of Systems ROS Statement: Those systems with pertinent positive or pertinent negative responses have been documented in the HPI. ROS Other: All systems not noted in ROS Statement are negative. Past Medical History Past Medical History: Asthma Additional Past Medical History / Comment(s): torn trachea History of Any Multi-Drug Resistant Organisms: None Reported Additional Past Surgical History / Comment(s): foot surgery Past Psychological History: No Psychological Hx Reported Smoking Status: Former smoker Past Alcohol Use History: None Reported Past Drug Use History: Marijuana General Exam Limitations: no limitations General appearance: alert, in no apparent distress Head exam: Present: atraumatic, normocephalic, normal inspection Eye exam: Present: normal appearance, PERRL, EOMI. Absent: scleral icterus, conjunctival injection, periorbital swelling ENT exam: Present: mucous membranes moist, TM's normal bilaterally, normal external ear exam. Absent: normal exam, normal oropharynx (Poor dentition, left-sided facial swelling no drainable abscess) Neck exam: Present: normal inspection. Absent: tenderness, meningismus, lymphadenopathy Respiratory exam: Present: normal lung sounds bilaterally. Absent: respiratory distress, wheezes, rales, rhonchi, stridor Cardiovascular Exam: Present: regular rate, normal rhythm, normal heart sounds. Absent: systolic murmur, diastolic murmur, rubs, gallop, clicks Course Vital Signs 10/29/23 20:34 Temperature 97.7 F Pulse Rate 79 Respiratory 18 Rate Blood Pressure 152/97 O2 Sat by Pulse 100 Oximetry Medical Decision Making - Medical Decision Making Was pt. sent in by a medical professional or institution (, PA, FRUIT HARVEST WORKER, urgent care, hospital, or prison...) When possible be specific @ -No Did you speak to anyone other than the patient for history (EMS, parent, family, police, friend...)? What history was obtained from this source @ -No Did you review nursing and triage notes (agree or disagree)? Why? @ -I reviewed and agree with nursing and triage notes Were old charts reviewed (outside hosp., previous admission, EMS record, old EKG, old radiological studies, urgent care reports/EKG's, prison records)? Report findings @ -No old charts were reviewed Differential Diagnosis (chest pain, altered mental status, abdominal pain women, abdominal pain men, vaginal bleeding, weakness, fever, dyspnea, syncope, headache, dizziness, GI bleed, back pain, seizure, CVA, palpatations, mental health, musculoskeletal)? @ -Dental abscess, dental infection EKG interpreted by me (3pts min.). @ -None X-rays interpreted by me (1pt min.). @ -None done CT interpreted by me (1pt min.). @ -None done U/S interpreted by me (1pt. min.). @ -None done What testing was considered but not performed or refused? (CT, X-rays, U/S, labs)? Why? @ -None What meds were considered but not given or refused? Why? @ -None Did you discuss the management of the patient with other professionals (professionals i.e. , PA, FRUIT HARVEST WORKER, lab, RT, psych nurse, sr. social media & mobile manager, manager business operations, teacher, penal officer, family service caseworker)? Give summary @ -No Was smoking cessation discussed for >3mins.? @ -No Was critical care preformed (if so, how long)? @ -No Were there social determinants of health that impacted care today? How? (Homelessness, low income, unemployed, alcoholism, drug addiction, transportation, low edu. Level, literacy, decrease access to med. care, senior living, rehab)? @ -No Was there de-escalation of care discussed even if they declined (Discuss DNR or withdrawal of care, Hospice)? DNR status @ -No What co-morbidities impacted this encounter? (DM, HTN, Smoking, COPD, CAD, Cancer, CVA, ARF, Chemo, Hep., AIDS, mental health diagnosis, sleep apnea, morbid obesity)? @ -None Was patient admitted / discharged? Hospital course, mention meds given and route, prescriptions, significant lab abnormalities, going to OR and other pertinent info. @Discharge patient has left-sided dental infection, swelling no drainable abscess started on Augmentin, analgesics and follow-up with dentist. Undiagnosed new problem with uncertain prognosis? @ -No Drug Therapy requiring intensive monitoring for toxicity (Heparin, Nitro, Insulin, Cardizem)? @ -No Were any procedures done? @ -No Diagnosis/symptom? @ -Dental infection Acute, or Chronic, or Acute on Chronic? @ -Acute Uncomplicated (without systemic symptoms) or Complicated (systemic symptoms)? @ -Uncomplicated Side effects of treatment? @ -No Exacerbation, Progression, or Severe Exacerbation? @ -No Poses a threat to life or bodily function? How? (Chest pain, [place], [place], pneumonia, PE, COPD, DKA, ARF, appy, cholecystitis, CVA, Diverticulitis, Homicidal, Suicidal, threat to staff... and all critical care pts) @ -No Disposition Clinical Impression: Dental infection Disposition: HOME SELF-CARE Condition: Stable Instructions (If sedation given, give patient instructions): Toothache (ED) Additional Instructions: Please return to the Emergency Department if symptoms worsen or any other concerns. Prescriptions: Amoxic-Pot Clav 875-125Mg [Augmentin 875-125] 1 tab PO Q12HR #20 tab Ketorolac [Toradol] 10 mg PO Q8HR #15 tab Is patient prescribed a controlled substance at d/c from ED?: No Referrals: None,Stated [Primary Care Provider] - 1-2 days Time of Disposition: 21:05
[2023-10-29] MEDS: HYDROcodone/APAP 7.5-325MG 1 EACH TAB PO ONE (21:11)
[2023-10-29] MEDS: AMOXIC-POT CLAV 875-125MG 1 EACH TAB PO STA (21:11)
[2023-10-29] MEDS: ACET/COD 300 MG/30 MG STARTER PACK 6 TAB BTL PO STA (21:12)
[2023-10-29 21:17] VITALS: BP 142/91; PULSE 71; TEMP 97.8
== END 2023-10-29 21:16 | disposition home or self-care (01) ==
LOC: EC 20:23
DX: K04.7 Periapical abscess without sinus (principal); Z87.891 Personal history of nicotine dependence
CPT/HCPCS: 99282

== ENCOUNTER 2023-10-30 02:39 | Emergency (ER) | payer BC ==
[2023-10-30 02:43] VITALS: TEMP 98.3
--- NOTE | 2023-10-30 02:55 | ED ---
ENT HPI - General Source: patient, RN notes reviewed Mode of arrival: ambulatory Limitations: no limitations <Srinivas Bernal - Last Filed: 10/30/23 02:54> - History of Present Illness MD complaint: tooth pain, difficulty swallowing -: days(s) Location: tooth # Severity: severe Severity scale (1-10): 9 Quality: stabbing, aching Consistency: constant Improves with: none Worsens with: none Context- Dental: poor dental care Context- Ear: recent illness <Chele Alvarez - Last Filed: 11/08/23 14:32> - General Chief complaint: Dental/Oral Stated complaint: Swelling in face, absess Time Seen by Provider: 10/30/23 02:44 - History of Present Illness Initial comments: 28-year-old male presents emergency department with complaint of dental pain,'s facial swelling he was seen here earlier and states his symptoms significantly worsened in the last several hours. He states he feels up towards his eye, into his throat. Patient denies any fevers he states he has a bad tooth and poor dentition. (Srinivas Bernal) This is a 28-year-old male to ER for evaluation of severe dental pain second ER visit today for same pain (Chele Alvarez) - Related Data Home Medications Medication Instructions Recorded Confirmed Ibuprofen [Motrin] 600 mg PO Q6HR PRN 12/11/15 07/09/18 Naproxen Sodium [Aleve] 220 mg PO DAILY PRN 12/11/15 07/09/18 Previous Rx's Medication Instructions Recorded HYDROcodone/APAP 5-325MG [[place] 1 tab PO Q6HR PRN #20 tab 07/09/18 5-325] Amoxic-Pot Clav 875-125Mg 1 tab PO Q12HR 10 Days #20 tab 09/06/22 [Augmentin 875-125] Ketorolac [Toradol] 10 mg PO Q6HR PRN #12 tab 09/06/22 Acyclovir [Zovirax] 800 mg PO QID 7 Days #28 tab 10/24/23 Ketorolac [Toradol] 10 mg PO Q8HR PRN #15 tab 10/24/23 Amoxic-Pot Clav 875-125Mg 1 tab PO Q12HR #20 tab 10/29/23 [Augmentin 875-125] Ketorolac [Toradol] 10 mg PO Q8HR #15 tab 10/29/23 Allergies Allergy/AdvReac Type Severity Reaction Status Date / Time No Known Allergies Allergy Verified 10/30/23 02:43 Review of Systems ROS Other: All systems not noted in ROS Statement are negative. <Srinivas Bernal - Last Filed: 10/30/23 02:54> ROS Other: All systems not noted in ROS Statement are negative. <Chele Alvarez - Last Filed: 11/08/23 14:32> ROS Statement: Those systems with pertinent positive or pertinent negative responses have been documented in the HPI. Past Medical History Past Medical History: Asthma Additional Past Medical History / Comment(s): torn trachea History of Any Multi-Drug Resistant Organisms: None Reported Additional Past Surgical History / Comment(s): foot surgery Past Psychological History: No Psychological Hx Reported Smoking Status: Former smoker Past Alcohol Use History: None Reported Past Drug Use History: Marijuana <Srinivas Bernal - Last Filed: 10/30/23 02:54> General Exam Limitations: no limitations General appearance: alert, in no apparent distress Head exam: Present: atraumatic, normocephalic, normal inspection Eye exam: Present: normal appearance, PERRL, EOMI. Absent: scleral icterus, conjunctival injection, periorbital swelling ENT exam: Present: mucous membranes moist, TM's normal bilaterally, normal external ear exam. Absent: normal oropharynx (Poor dentition no drainable abscess significant left-sided facial swelling) Neck exam: Present: normal inspection, full ROM. Absent: tenderness, meningismus, lymphadenopathy Respiratory exam: Present: normal lung sounds bilaterally. Absent: respiratory distress, wheezes, rales, rhonchi, stridor Cardiovascular Exam: Present: regular rate, normal rhythm, normal heart sounds. Absent: systolic murmur, diastolic murmur, rubs, gallop, clicks <Srinivas Bernal - Last Filed: 10/30/23 02:54> General appearance: alert, in no apparent distress, anxious Head exam: Present: atraumatic, normocephalic, normal inspection Eye exam: Present: normal appearance, PERRL, EOMI. Absent: scleral icterus, conjunctival injection, periorbital swelling ENT exam: Present: normal exam, mucous membranes moist Neck exam: Present: normal inspection. Absent: tenderness, meningismus, lymphadenopathy Respiratory exam: Present: normal lung sounds bilaterally. Absent: respiratory distress, wheezes, rales, rhonchi, stridor Cardiovascular Exam: Present: regular rate, normal rhythm, normal heart sounds. Absent: systolic murmur, diastolic murmur, rubs, gallop, clicks GI/Abdominal exam: Present: soft, normal bowel sounds. Absent: distended, tenderness, guarding, rebound, rigid Extremities exam: Present: normal inspection, full ROM, normal capillary refill. Absent: tenderness, pedal edema, joint swelling, calf tenderness Back exam: Present: normal inspection Neurological exam: Present: alert, oriented X3, CN II-XII intact Psychiatric exam: Present: normal affect, normal mood Skin exam: Present: warm, dry, intact, normal color. Absent: rash <Chele Alvarez - Last Filed: 11/08/23 14:32> Course <Chele Alvarez - Last Filed: 11/08/23 14:32> Vital Signs 10/30/23 10/30/23 02:40 04:43 Temperature 98.3 F Pulse Rate 88 75 Respiratory 18 16 Rate Blood Pressure 143/99 123/75 O2 Sat by Pulse 97 95 Oximetry - Reevaluation(s) Reevaluation #1: Records reviewed (Chele Alvarez) Reevaluation #2: Patient symptoms improved (Chele Alvarez) Reevaluation #3: Patient informed of results and questions answered (Chele Alvarez) Reevaluation #4: Was pt. sent in by a medical professional or institution (, PA, [employer]PA[employer]ER, urgent care, hospital, or alf...) When possible be specific @ -no Did you speak to anyone other than the patient for history (EMS, parent, family, police, friend...)? What history was obtained from this source @ -no Did you review nursing and triage notes (agree or disagree)? Why? @ -agree Are old charts reviewed (outside hosp., previous admission, EMS record, old EKG, old radiological studies, urgent care reports/EKG's, alf records)? Report findings @ -yes Differential Diagnosis (chest pain, altered mental status, abdominal pain women, abdominal pain men, vaginal bleeding, weakness, fever, dyspnea, syncope, headache, dizziness, GI bleed, back pain, seizure, CVA, palpatations, mental health, musculoskeletal)? @ -prior EKG interpreted by me (3pts min.). @ -no X-rays interpreted by me (1pt min.). @ -no CT interpreted by me (1pt min.). @ -yes negative for acute disease U/S interpreted by me (1pt. min.). @ -no What testing was considered but not performed or refused? (CT, X-rays, U/S, labs)? Why? @ -none What meds were considered but not given or refused? Why? @ -none Did you discuss the management of the patient with other professionals (professionals i.e. , PA, [employer] REPAIRER, lab, RT, psych nurse, licensed social worker, cyber policy and strategy planner, teacher, state patrol officer, embedded case manager)? Give summary @ -no Was smoking cessation discussed for >3mins.? @ -no Was critical care preformed (if so, how long)? @ -no Were there social determinants of health that impacted care today? How? (Homelessness, low income, unemployed, alcoholism, drug addiction, transportation, low edu. Level, literacy, decrease access to med. care, retirement, rehab)? @ -none Was there de-escalation of care discussed even if they declined (Discuss DNR or withdrawal of care, Hospice)? DNR status @ -no What co-morbidities impacted this encounter? (DM, HTN, Smoking, COPD, CAD, Cancer, CVA, ARF, Chemo, Hep., AIDS, mental health diagnosis, sleep apnea, morbid obesity)? @ -none Was patient admitted / discharged? Hospital course, mention meds given and route, prescriptions, significant lab abnormalities, going to OR and other pertinent info. @ - 28 male to ER with severe dental pain here in the emergency room and CT scan shows no significant distinct abscess periapical abscess patient given pain control and can be discharged home Discharge Undiagnosed new problem with uncertain prognosis? @ -no Drug Therapy requiring intensive monitoring for toxicity (Heparin, Nitro, Insulin, Cardizem)? @ -no Were any procedures done? @ -no Diagnosis/symptom? @ -Periapical dental abscess Acute, or Chronic, or Acute on Chronic? @ -Acute Uncomplicated (without systemic symptoms) or Complicated (systemic symptoms)? @ -Complicated Side effects of treatment? @ -no Exacerbation, Progression, or Severe Exacerbation? @ -exacerbation Poses a threat to life or bodily function? How? (Chest pain, [place], [place], pneumonia, PE, COPD, DKA, ARF, appy, cholecystitis, CVA, Diverticulitis, Homicidal, Suicidal, threat to staff... and all critical care pts) @ -yes urine infection (Chele Alvarez) Medical Decision Making - Lab Data Result diagrams: 10/30/23 03:03 10/30/23 03:03 - Radiology Data Radiology results: report reviewed (CT soft tissue neck is positive for dental abscess apical abscess), image reviewed <Chele Alvarez - Last Filed: 11/08/23 14:32> - Medical Decision Making 28 male to ER with severe dental pain here in the emergency room and CT scan shows no significant distinct abscess periapical abscess patient given pain control and can be discharged home (Chele Alvarez) - Lab Data Lab Results 10/30/23 10/30/23 10/30/23 Range/Units 03:03 03:03 03:03 WBC 16.6 H (3.8-10.6) k/uL RBC 4.49 (4.30-5.90) m/uL Hgb 14.7 (13.0-17.5) gm/dL Hct 40.6 (39.0-53.0) % MCV 90.4 (80.0-100.0) fL MCH 32.9 (25.0-35.0) pg MCHC 36.4 (31.0-37.0) g/dL RDW 12.9 (11.5-15.5) % Plt Count 253 (150-450) k/uL MPV 8.8 Neutrophils % 63 % Lymphocytes % 26 % Monocytes % 6 % Eosinophils % 2 % Basophils % 1 % Neutrophils # 10.5 H (1.3-7.7) k/uL Lymphocytes # 4.3 (1.0-4.8) k/uL Monocytes # 1.0 (0-1.0) k/uL Eosinophils # 0.3 (0-0.7) k/uL Basophils # 0.1 (0-0.2) k/uL Sodium 139 (137-145) mmol/L Potassium 4.3 (3.5-5.1) mmol/L Chloride 109 H (98-107) mmol/L Carbon Dioxide 23 (22-30) mmol/L Anion Gap 7 mmol/L BUN 15 (9-20) mg/dL Creatinine 0.88 (0.66-1.25) mg/dL Est GFR (CKD-EPI)AfAm >90 (>60 ml/min/1.73 sqM) Est GFR (CKD-EPI)NonAf >90 (>60 ml/min/1.73 sqM) Glucose 105 H (74-99) mg/dL Plasma Lactic Acid Pito 0.9 (0.7-2.0) mmol/L Calcium 8.9 (8.4-10.2) mg/dL Total Bilirubin 0.6 (0.2-1.3) mg/dL AST 20 (17-59) U/L ALT 23 (4-49) U/L Alkaline Phosphatase 56 (38-126) U/L Total Protein 7.0 (6.3-8.2) g/dL Albumin 4.4 (3.5-5.0) g/dL Disposition <Srinivas Bernal - Last Filed: 10/30/23 02:54> Is patient prescribed a controlled substance at d/c from ED?: No Time of Disposition: 04:40 <Chele Alvarez - Last Filed: 11/08/23 14:32> Clinical Impression: Dental infection, Dental abscess, Dental caries Disposition: HOME SELF-CARE Condition: Good Instructions (If sedation given, give patient instructions): Dental Abscess (ED), Toothache (ED) Referrals: Miguel Mcfadden DDS [STAFF PHYSICIAN] - 1-2 days Chele Clifton DDS [STAFF PHYSICIAN] - 1-2 days
[2023-10-30] MEDS: SODIUM CHLORIDE 0.9% 1,000 ML IV ONE (03:21)
[2023-10-30] MEDS: HYDROmorphone 1 MG/ML 1 ML SYRINGE IVP STA (03:23)
[2023-10-30] MEDS: KETOROLAC 15 MG/ML 1 ML VIAL IVP STA (03:25)
[2023-10-30 03:26] LABS: Basophils # (A) 0.1 k/uL (0-0.2); Basophils % (A) 1 %; Eosinophils # (A) 0.3 k/uL (0-0.7); Eosinophils % (A) 2 %; HCT 40.6 % (39.0-53.0); HGB 14.7 gm/dL (13.0-17.5); Lymphocytes # (A) 4.3 k/uL (1.0-4.8); Lymphocytes % (A) 26 %; MCH 32.9 pg (25.0-35.0); MCHC 36.4 g/dL (31.0-37.0); MCV 90.4 fL (80.0-100.0); Mean Platelet Volume 8.8; Monocytes % (A) 6 %; Neutrophils # (A) 10.5 k/uL (1.3-7.7); Neutrophils % (A) 63 %; Platelet Count 253 k/uL (150-450); RBC 4.49 m/uL (4.30-5.90); RDW 12.9 % (11.5-15.5); WBC 16.6 k/uL (3.8-10.6)
[2023-10-30] MEDS: DEXAMETHASONE SOD PHOSPHATE 10 MG/ML 1 ML VIAL IVP STA (03:27)
[2023-10-30] MEDS: AMPICILLIN-SULBACTAM 3 GM in SODIUM CHLORIDE 0.9% 100 ML IVPB STA (03:28)
[2023-10-30 03:38] LABS: ALT 23 U/L (4-49); AST 20 U/L (17-59); African American GFR (CKD) >90 (>60 ml/min/1.73 sqM); Albumin 4.4 g/dL (3.5-5.0); Alkaline Phosphatase 56 U/L (38-126); Anion Gap 7 mmol/L; Blood Urea Nitrogen 15 mg/dL (9-20); Calcium 8.9 mg/dL (8.4-10.2); Carbon Dioxide 23 mmol/L (22-30); Chloride 109 mmol/L (98-107); Glucose 105 mg/dL (74-99); Non-African American GFR(CKD) >90 (>60 ml/min/1.73 sqM); Potassium 4.3 mmol/L (3.5-5.1); Sodium 139 mmol/L (137-145); Total Bilirubin 0.6 mg/dL (0.2-1.3)
--- NOTE | 2023-10-30 04:35 | CT ---
EXAM: CT Neck With Intravenous Contrast CLINICAL HISTORY: ITS.REASON CT Reason: Facial swelling, difficulty swallowing TECHNIQUE: Axial computed tomography images of the neck with intravenous contrast. CTDI is 7.6 mGy and DLP is 254.7 mGy-cm. This CT exam was performed using one or more of the following dose reduction techniques: automated exposure control, adjustment of the mA and/or kV according to patient size, and/or use of iterative reconstruction technique. COMPARISON: No relevant prior studies available. FINDINGS: Oropharynx: Unremarkable. No significant tonsillar enlargement. No peritonsillar abscess. Hypopharynx: Unremarkable. Larynx: Unremarkable. Normal epiglottis. Trachea: Unremarkable. Retropharyngeal space: Unremarkable. Submandibular/parotid glands: Unremarkable. Glands are normal in size. Thyroid: Unremarkable. No enlarged or calcified nodules. Bones/joints: No acute fracture. Dental caries with periapical lucencies about tooth #5, 8, and 12. Soft tissues: There is a periosteal abscess along the left lateral maxilla measuring 28.8 x 18.1 by ice on 0.8 mm with extensive inflammation of the surrounding soft tissues. Vasculature: No acute findings. Lymph nodes: Prominent cervical lymph nodes. No lymphadenopathy. Lung apices: Unremarkable as visualized. IMPRESSION: Dental caries with periapical lucencies about tooth #5, 8 and 12 concerning for periapical abscesses with a periosteal abscess along the left lateral maxilla with extensive inflammation surrounding soft tissues. Recommend dental consult for further evaluation.
[2023-10-30 04:47] VITALS: BP 123/75; PULSE 75; RESP 16
[2023-10-30] MEDS: ONDANSETRON 4 MG/2 ML VIAL IVP STA (04:56)
== END 2023-10-30 05:02 | disposition home or self-care (01) ==
LOC: EC 02:39
DX: K02.9 Dental caries, unspecified (principal); R13.10 Dysphagia, unspecified; K04.7 Periapical abscess without sinus; Z87.891 Personal history of nicotine dependence
CPT/HCPCS: 36415; 80053; 83605; 85025; 70491; 99284; 96365; 96375 ×4; J1100; J2405; J1170; J0295; J1885; Q9967